=== PATIENT | female | born 1975 | race African-American/Black ===

== ENCOUNTER 2017-02-07 01:30 | Emergency (ER) | payer OTHER ==
[~2017-02-07] VITALS: Ht 167.6 cm; Wt 78.0 kg
[2017-02-07] MEDS ORDERED: ALBUTEROL (0.083%) 2.5MG/3ML NEB HHN STA (02:01)
[2017-02-07] MEDS ORDERED: IPRATROPIUM BROMIDE (0.02%) 0.5MG/2.5ML NEB HHN STA (02:01)
[2017-02-07] MEDS ORDERED: PREDNISONE 20MG TABLET PO STA (02:01)
[2017-02-07] MEDS ORDERED: VISCOUS LIDOCAINE 2% 15 ML UDC MM STA (02:02)
[2017-02-07 04:17] VITALS: BP 131/74
== END 2017-02-07 04:27 | disposition home or self-care (01) ==
LOC: ER 01:30
DX: J40 Bronchitis, not specified as acute or chronic (principal)
CPT/HCPCS: 71010; 94640; 99283; J7512; J7611